=== PATIENT | female | born 1960 | race Caucasian/White ===

== ENCOUNTER → 2024-10-03 12:06 | Outpatient (REF) | payer OTHER, SELFPAY | LOC: WDC 12:06 | PROVIDERS: ATTENDING PHYSICIAN Nurse Practitioner Family | DX: Z12.31 Encounter for screening mammogram for malignant neoplasm of breast (principal) | CPT/HCPCS: 77063; 77067 ==

== ENCOUNTER → 2024-12-24 10:20 | Outpatient (REF) | payer OTHER, SELFPAY | LOC: RCS 10:20 | PROVIDERS: ATTENDING PHYSICIAN Nurse Practitioner Family | DX: Z01.818 Encounter for other preprocedural examination (principal) | CPT/HCPCS: 93005 ==